=== PATIENT | female | born 1990 | race Native Hawaiian/Other Pacific Islander ===

== ENCOUNTER 2017-01-04 23:10 | Emergency (ER) | payer OTHER ==
[2017-01-05 00:44] LABS: URINE SOURCE CLEAN CATCH
[2017-01-05 00:50] LABS: URINE APPEARANCE CLEAR; URINE BILIRUBIN NEG (NEG); URINE BLOOD 3+ (NEG); URINE COLOR YELLOW; URINE GLUCOSE NEG (NEG); URINE KETONE NEG (NEG); URINE LEUKOCYTE ESTERASE TRACE (NEG); URINE NITRATE NEG (NEG); URINE PROTEIN NEG (NEG); URINE SPECIFIC GRAVITY 1.021 (1.003-1.035); URINE UROBILINOGEN 0.2 MG/DL (NEG)
[2017-01-05 00:53] LABS: CULTURE INDICATED? YES; URINE BACTERIA AUWI 1+ (NEGATIVE); URINE SQUAMOUS EPITHELIAL CELL MOD /[HPF]
[2017-01-05 00:57] LABS: INFLUENZA A NEG (NEG); INFLUENZA B NEG (NEG)
[2017-01-05 01:01] LABS: URINE MUCUS PRESENT
== END 2017-01-05 03:04 | disposition home or self-care (01) ==
LOC: CED 23:10
PROVIDERS: Student in an Organized Health Care Education/Training Program
DX: G43.909 Migraine, unspecified, not intractable, without status migrainosus (principal); J02.0 Streptococcal pharyngitis
CPT/HCPCS: 81003; 84703; 87086; 87804; 87880; 96361; 96374; 96375; 99284; J1885; J2550